=== PATIENT | male | born 1955 | race Caucasian/White ===

== ENCOUNTER 2017-01-21 09:16 | Observation (INO) ==
[2017-01-21] MEDS ORDERED: NS 1,000 ML IV PRN (09:25)
[2017-01-21] MEDS ORDERED: NS 1,000 ML IV ONE ×2 (09:57→12:19)
--- NOTE | 2017-01-21 09:57 | ED EKG INTERP ---
This chart was entered by Yamel Trinidad Scribe, acting as scribe for Pollo Maciel MD. EKG Interpretation - EKG Time of EKG reading by physician:: 09:34 EKG Read and Signed by:: Pollo Maciel EKG Interpretation (*Must complete 3 of following elements*): Abnormal Rate: 95 Rhythm: normal sinus rhythm Comments: nonspecific T wave abnormality Attestation - Physician/ TRUDY Attestation The physician spent face to face time with patient:: Yes Advanced Practice Provider documentation review:: Supervising physician onsite and consulted in the evaluation and care of this patient. The physician did have a face to face encounter with the patient. This chart was documented by the indicated scribe, (Yamel Trinidad Scribe) and accurately reflects the services I performed and decisions made by me, Pollo Maciel MD, as attested by the provider's signature.
[2017-01-21] MEDS ORDERED: NS 1,000 ML ONE (09:58)
[2017-01-21 10:10] LABS: MANUAL DIFF NEEDED? NO
[2017-01-21 10:12] LABS: OCCULT BLOOD 1 POSITIVE (NEGATIVE)
[2017-01-21 10:15] LABS: BASO% 0.4 % (0.0-0.8); EOS# 0.27 X1000 (0.0-0.7); EOS% 2.4 % (0.0-10.0); HEMATOCRIT 38.2 % (42.0-52.0); HEMOGLOBIN 13.4 g/dL (14.0-18.0); IMM GRAN# 0.03 X1000 (0.0-0.04); IMM GRAN% 0.3 % (0.0-0.5); LYMPH# 3.74 X1000 (1.2-3.4); LYMPH% 33.4 % (20.5-51.1); MCH 31.7 PG (27-31); MCHC 35.1 g/dL (33-37); MCV 90.3 FL (81-99); MONO# 0.85 X1000 (0.11-0.59); MONO% 7.6 % (1.7-9.3); MPV 10.6 FL (7.4-10.4); NEUT% 55.9 % (42.2-75.2); PLT 221 X1000 (130-400); RBC 4.23 XMIL (4.7-6.1)
[2017-01-21 10:29] LABS: AGAP 8; ALBUMIN 3.9 g/dL (3.5-5.0); ALKALINE PHOSPHATASE 42 U/L (32-122); BUN 30 mg/dL (8-22); CALCIUM 8.6 mg/dL (8.8-10.2); CHLORIDE 97 mmol/L (98-107); COSMO 276; GOT 18 U/L (10-34); GPT 21 U/L (10-44); POTASSIUM 3.4 mmol/L (3.5-5.1); SODIUM 135 mmol/L (136-145); TCO2 30 mmol/L (25-35); TOTAL PROTEIN 6.5 g/dL (6.3-8.3)
[2017-01-21 10:39] LABS: PTT PL 27.8 Seconds (22.6-43.9)
--- NOTE | 2017-01-21 11:45 | Diag Imaging Result Doc PS360 ---
EXAM: CT ABD/PELVIS W/ IV CONT ONLY HISTORY: black, tarry stools; LLQ pain, epigastric pain TECHNIQUE: Routine with IV contrast as per standard protocol. Dose reduction technique.. Oral contrast was not administered as per ED physician request. COMPARISON: None. FINDINGS: The lung bases show no abnormalities. The gastric folds appear prominent which may be secondary to nondistention or diffuse fold thickening. There is moderate constipation. There is diverticulosis. No evidence for diverticulitis. The appendix appears normal. Prostate gland is prominent measuring 4.4 cm transverse diameter. There is left nephrolithiasis. No hydronephrosis is appreciated. There is no free fluid or free air. The liver, spleen, and kidneys are unremarkable. No small bowel distention. Pancreas appears somewhat hypodense however there is no peripancreatic inflammation. No adenopathy is identified. IMPRESSION: 1.Prominent gastric folds which may be secondary to nondistention. Inflammatory change cannot be excluded. 2.Diverticulosis. No evidence for diverticulitis. 3.Constipation. 4.Hypodense pancreas which may be seen with pancreatitis, however, there is no peripancreatic inflammatory change. 5.Left nephrolithiasis. No hydronephrosis. Electronically signed by Delores White 01/21/2017 11:43 AM
[2017-01-21] MEDS ORDERED: ZOFRAN IV PRN (12:19)
[2017-01-21] MEDS ORDERED: TYLENOL PO PRN (12:19)
--- NOTE | 2017-01-21 12:23 | PROVIDER DOCUMENTATION ---
This chart was entered by Yamel Trinidad Scribe, acting as scribe for Iza Martinez PA. HPI-Abdominal Pain/GI Problem - General Chief Complaint: GI Bleed Stated Complaint: SOB,RAPID PULSE,FAINT,SWEATY Time Seen by Provider: 01/21/17 09:31 Source: patient Allergies/Adverse Reactions: Patient Allergies Allergy/AdvReac Type Severity Reaction Status Date / Time No Known Allergies Allergy Verified 01/21/17 09:24 - History of Present Illness-ABD Nature of Presenting Problems: Pt is 61 y/o M presents to the ED with abdominal pain. Pt states 2 bowel movement of black tarry stool. Pt state nausea and loss of appetite for 4 days. Pt states was diagnosed with stomach ulcer 5 yrs ago with EGD. Pt states he thought it was his ulcer, so Pt has been drinking milk for ulcer. Pt states colonoscopy 2 yrs ago with diagnosis of diverticulosis. Pt denies vomiting yesterday but did vomit a few days ago. Abdominal Pain Onset Location: reports: generalized abdomen Pain Radiation: reports: no radiation Quality of Pain: reports: aching Severity in ED: reports: mild Onset/Duration: reports: 24 hours ago (first black, tarry stool was yesterday but adominal pain and nausea started 4 days ago) Timing: reports: still present Activities at Onset: reports: light activity Exposure to sick contacts?: No Modifying Factors: improves with: nothing Associated Symptoms: reports: diaphoresis, heartburn, loss of appetite, nausea, weakness. denies: anxiety, arm pain, back/neck pain, chest pain, constipation, cough, diarrhea, dizziness, EENT symptoms, fatigue, fever/chills, genitourinary problems, headaches, joint pain, malaise, muscle aches, sinus congestion/ drainage, rash, seizure, shortness of breath, sensory/motor loss, pain with inspiration, swelling/mass in abdomen, syncope, vomiting, trouble walking Last BM: 24 hours ago Dark Stools Present?: reports: black, tarry Rectal Bleeding: reports: none Rectal Pain: reports: none Emesis Description: reports: none Bruising or Bleeding Gums?: No Similar Symptoms Previously?: Yes (present since yesterday. ) Recently seen or treated by another doctor?: No Review of Systems - Adult - REVIEW OF SYSTEMS - ADULT Constitutional: denies: chills, fever Eyes: denies: blurred vision, double vision, redness Ears, Nose, Mouth & Throat: denies: ear pain, nose pain, throat pain Cardiovascular: denies: chest pain, heart murmur, irregular heart rate Respiratory: denies: cough, shortness of breath, wheezing Gastrointestinal: reports: abdominal pain, nausea, poor appetite, other (black tarry stool). denies: diarrhea, rectal bleeding, vomiting Genitourinary: denies: dysuria, flank pain, hematuria Musculoskeletal: denies: bone pain, joint pain, neck pain Integumentary: denies: hives, itching, rash Neurological: denies: dizziness/vertigo, headache/migraines, numbness, seizure, syncope Psychiatric: denies: anxiety, depression, suicidal thoughts Endocrine: reports: no symptoms reported Hematologic/Lymphatic: reports: no symptoms reported Allergic/Immunologic: reports: no symptoms reported All Other Systems: Reviewed and Negative Past History - Adult - PAST MEDICAL HISTORY-ADULT Review of Records: reports: Nursing Assessment Review, Medications Reviewed, Social history reviewed & non-contributory. Major Childhood Illnesses: reports: denies history Cardiovascular: reports: HTN Respiratory: reports: denies history Gastrointestinal: reports: denies history Obstetrical/Gynecological: reports: denies history Genitourinary: reports: denies history Musculoskeletal: reports: denies history Neurological: reports: denies history Endocrine/Immune: reports: denies history Other Conditions: reports: denies history - PRIOR SURGERIES/PROCEDURES Surgical/Procedure History: reports: reviewed, not pertinent - IMMUNIZATION STATUS Childhood Immunizations: See Nurse Assessment Flu Vaccine: See Nurse Assessment - FAMILY HISTORY Family History: reviewed, not pertinent - SOCIAL HISTORY Smoking: chew, less than 1 pack/day Provider spent 3-5 mins advising pt. on dangers of tobacco.: discussed smoking cessation Substance Use: denies Living Situation: family Physical Exam-General - PHYSICAL EXAM-ADULT Initial Vital Signs Reviewed: Yes - CONSTITUTIONAL General Appearance: appears well, alert, no apparent distress - EYES Eyes: PERRL/EOMI, pink conjunctivae - HEAD, EARS, NOSE, MOUTH & THROAT HENMT: normocephalic/atraumatic, moist mucous membranes - NECK Neck: non-tender, full range of motion, supple - RESPIRATORY Respiratory: chest non-tender, lungs clear, normal breath sounds - CARDIOVASCULAR Cardiovascular: normal peripheral pulses, regular rate, rhythm, no edema - GASTROINTESTINAL (ABDOMEN) Abdominal Exam: normal bowel sounds, soft, tenderness (LLQ and epigastric area with mild pain) - GENITOURINARY Rectal Exam: normal rectal tone, black stool. negative: hemorrhoids, prostate enlarged/nodule, tenderness Hemoccult Exam: heme positive stool - MUSCULOSKELETAL Back Exam: normal inspection, no CVA tenderness, no vertebral tenderness Extremity: normal gait, normal inspection Peripheral Pulses: dorsalis-pedis (R): 2+, dorsalis-pedis (L): 2+ - SKIN Integumentary: normal color, normal turgor, warm/dry. negative: diaphoresis - NEUROLOGIC Neurologic: grossly normal, no motor/sensory deficits - PSYCHIATRIC Psych/Mental Status: normal mood/affect, normal thought content, normal thought process, oriented x 3 Progress - PLAN OF CARE/RESULTS Progress/Plan/Lab Results: Vital Signs - 8 hr 01/21/17 09:19 01/21/17 09:33 01/21/17 09:44 Temperature 97.3 F L Pulse Rate 90 103 H Pulse Rate [Sitting] 104 H Pulse Rate [Standing] 102 H Pulse Rate [Supine] 86 Respiratory Rate 20 18 Blood Pressure 109/71 Blood Pressure [Sitting] 110/71 Blood Pressure [Standing] 109/71 Blood Pressure [Supine] 118/79 O2 Sat by Pulse Oximetry 100 98 Orders Category Date Time Status Saline Loc DIRECTED Care 01/21/17 09:25 Active CBC WITH ELECTRONIC DIFF [HEME] Stat Lab 01/21/17 09:25 Ordered COMPREHENSIVE METABOLIC PANEL [CHEM] Stat Lab 01/21/17 09:25 Ordered OCCULT BLOOD SCREEN STOOL PL Stat Lab 01/21/17 09:56 Ordered PROTIME WITH INR PL [COAG] Stat Lab 01/21/17 09:[address] [COAG] Stat Lab 01/21/17 09:25 Ordered TYPE & SCREEN [BBK] Stat Lab 01/21/17 09:25 Ordered 0.9% Sodium Chloride Inj [Ns] 1,000 ml Med 01/21/17 09:58 Discontinued .ROUTE As Directed 0.9% Sodium Chloride Inj [Ns] 1,000 ml Med 01/21/17 09:57 Active IV 999 mls/hr Result Diagrams: 01/21/17 09:51 01/21/17 09:57 - CONSULTS/PCP/HOSPITALIST Notification #1 *Consult/PCP/Hospitalist*: Saumya Time Discussed: 12:10 Consult Disposition: Admit Departure - Departure Date of Disposition Decision: 01/21/17 Time of Disposition Decision: 12:19 DIAGNOSIS: GI bleed due to NSAIDs Disposition: ADMITTED INPATIENT 09 Certified Medical Emergency: Emergent Condition: Stable Referrals and Follow-Ups: Tru Kerns MD [Primary Care Provider] - - Critical Care Note This patient required my direct & personal management of CC.: No Attestation - Physician/ TRUDY Attestation Patient care was provided by Advanced Practice Provider:: Yes Advanced Practice Provider:: Iza Martinez Advanced Practice Provider documentation review:: The Mid-level provider documentation, treatment plan and medical decision making was reviewed by the physician who agrees with all treatment and medical decision making by the MLP. The physician spent face to face time with patient:: Yes Advanced Practice Provider documentation review:: Supervising physician onsite and consulted in the evaluation and care of this patient. The physician did have a face to face encounter with the patient. This chart was documented by the indicated scribe, (Yamel Trinidad Scribe) and accurately reflects the services I performed and decisions made by me, Iza Martinez PA, as attested by the provider's signature.
[2017-01-21] MEDS ORDERED: SODIUM CHLORIDE 0.9% INJ SCH (17:00)
[2017-01-21] MEDS ORDERED: MAALOX PLUS LIQUID PO PRN (17:01)
--- NOTE | 2017-01-21 17:07 | HISTORY AND PHYSICAL ---
CHIEF COMPLAINT: Abdominal burning, black tarry stools. HISTORY OF PRESENT ILLNESS: This is a 61-year-old, male with a prior history of gastric ulcers, H. pylori positive who presented to the emergency room complaining of black tarry stools as well as epigastric burning and an increase in his reflux. He states that he started having epigastric and upper abdominal pain Tuesday. This was consistent with prior gastric ulcers. He states he developed diarrhea. Having black tarry stools. He denied any maroon or red stools or any vomitus or coffee-grounds emesis or blood. He does state that he takes 5-6 BC powders a day for headache. He did complain of some dizziness on walking, although he is not orthostatic by blood pressure. He did have a 20 point rise in heart rate from lying to standing. CT of the abdomen and pelvis revealed prominent gastric folds which could be secondary to non distention, diverticulosis, hypodense pancreas, which may be seen with pancreatitis with no peripancreatic inflammatory change. He was given a liter of saline. Zofran for nausea. Admitted for further evaluation and treatment. PAST MEDICAL HISTORY: Hypertension, gout, H. pylori positive. Gastric ulcers. Esophageal stricture. PAST SURGICAL HISTORY: Esophageal dilatation. SOCIAL HISTORY: He uses smokeless tobacco. He denies alcohol or illicit drug use. ALLERGIES: No known drug allergies. HOME MEDICATIONS: Allopurinol 100 mg daily. Lorazepam 0.5 t.i.d. Lisinopril/ hydrochlorothiazide 12.5/20 mg b.i.d., Ultram 100 t.i.d., Nexium 40 mg daily. REVIEW OF SYSTEMS: A 14 point review of systems is discussed with patient with pertinent positives stated in HPI. He denies syncope, palpitations, chest pain, any shortness of breath, cough, PND, orthopnea, fever, chills, black or bloody vomitus, any bloody stools , hematuria, dysuria, frequency, urgency. PHYSICAL EXAMINATION: GENERAL: This is a 61-year-old male who is sitting up in the bed, in no distress. VITAL SIGNS: Blood pressure is 125/77 with a heart rate of 74, respirations are 16, temperature is 97.6 oral with a room air saturation of 100%. HEENT: Head is normocephalic, atraumatic. Pupils equal, round, react to light. EOMs are intact. Sclerae anicteric. Mucous membranes are moist. NECK: Supple. Trachea midline. CARDIOVASCULAR: Regular rate and rhythm. S1 and S2 are appreciated. PULMONARY: Breath sounds are clear with no increased work of breathing noted. Chest does rise and fall symmetrically with respiration. GASTROINTESTINAL: Abdomen is soft with some left lower quadrant and epigastric tenderness. Bowel sounds present in all 4 quadrants. MUSCULOSKELETAL: Good range of motion of joints. EXTREMITIES: No clubbing, cyanosis, or edema. Calves are nontender. Pulses are palpable x4. NEUROLOGIC: He is alert and oriented x3. Cranial nerves 2-12 grossly intact. SKIN: Warm and dry with no rashes or lesions noted. DIAGNOSTICS: WBC is 11.1 with hemoglobin 13.4, hematocrit 38.2 and platelets of 221. Sodium is 135, potassium 3.4, BUN 30, creatinine 1 with a glucose of 95. Stool occult blood is positive. CT scan of the abdomen and pelvis reveals prominent gastric folds which may be secondary to nondistention. Moderate constipation, diverticulosis. Prominent prostate at 4.4 cm transverse. Left nephrolithiasis. No hydronephrosis. No free air. Pancreas appears somewhat hypodense, however, there is no peripancreatic inflammation. ASSESSMENT AND PLAN: 1. Gastrointestinal bleed. This is most likely due to nonsteroidal anti- inflammatory drug use, as he does take 5-6 BC powders daily and he has for quite some time. Will hold, of course, any NSAIDs. Will give Protonix. We will start Carafate. recheck his hemoglobin and hematocrit at 6 p.m. and repeat labs in the morning. 2. Leukocytosis. 3. Hypokalemia. Will trend electrolytes, or replete as appropriate. 4. Tobacco use and abuse. We did discuss with the patient the perils of smoking. Giving ways to assist with cessation as well as materials for smoking cessation. We will have a nicotine patch if needed. 5. For deep vein thrombosis prophylaxis will use sequential compression devices. 6. For gastrointestinal prophylaxis, of course, we will add Protonix. Further treatments pending hospital course. Dictated by REBECCA Phillips for Tru Kerns MD cc: REBECCA Phillips MD [facility]
[2017-01-21] MEDS: CARAFATE PO SCH ×2 (17:29→20:27)
[2017-01-21] MEDS: PROTONIX IV SCH (17:30)
[2017-01-21 17:57] LABS: HEMATOCRIT 32.8 % (42.0-52.0); HEMOGLOBIN 11.5 g/dL (14.0-18.0); MCHC 35.1 g/dL (33-37); MCV 91.4 FL (81-99); MPV 10.6 FL (7.4-10.4); RBC 3.59 XMIL (4.7-6.1)
[2017-01-21] MEDS: PRINIVIL PO SCH (20:27)
[2017-01-21] MEDS: HYDROCHLOROTHIAZIDE PO SCH (20:27)
[2017-01-22] MEDS: PROTONIX IV SCH (05:28)
[2017-01-22 06:25] LABS: AGAP 6; BUN 15 mg/dL (8-22); CALCIUM 8.4 mg/dL (8.8-10.2); CHLORIDE 101 mmol/L (98-107); COSMO 274; POTASSIUM 3.7 mmol/L (3.5-5.1); SODIUM 136 mmol/L (136-145); TCO2 29 mmol/L (25-35)
[2017-01-22 06:30] LABS: HEMOGLOBIN 11.3 g/dL (14.0-18.0); MCH 31.5 PG (27-31); MCHC 34.2 g/dL (33-37); MCV 91.9 FL (81-99); MPV 10.6 FL (7.4-10.4); RBC 3.59 XMIL (4.7-6.1)
[2017-01-22] MEDS: CARAFATE PO SCH ×2 (07:59→10:46)
[2017-01-22] MEDS ORDERED: ATIVAN PO PRN (08:22)
[2017-01-22] MEDS ORDERED: ULTRAM PO SCH (09:00)
[2017-01-22] MEDS ORDERED: ZYLOPRIM PO SCH (09:00)
[2017-01-22] MEDS: PRINIVIL PO SCH (09:18)
[2017-01-22] MEDS: HYDROCHLOROTHIAZIDE PO SCH (09:18)
[2017-01-22 12:01] VITALS: BP 115/66
--- NOTE | 2017-01-22 12:32 | DISCHARGE SUMMARY ---
ADMISSION DATE: 01/21/2017 DISCHARGE DATE: 01/22/2017 DATE OF ADMISSION: 01/21. DATE OF DISCHARGE: 01/22. DISCHARGE DIAGNOSES: 1. Upper bleed secondary to NSAID use, stable. 2. Anemia, stable with 11 and 33. 3. Hypokalemia, resolved. 4. Heme-positive stools secondary to his upper gastrointestinal bleed. The patient has had no further diarrhea and no further stool while in the hospital. CONSULTATIONS: None. PROCEDURES: None. BRIEF HOSPITAL COURSE: The patient is a 61-year-old male, who was admitted to the hospital, watched overnight, and given Nexium, Carafate, IV fluids, kept n.p.o. and he continues to improve. He advanced his diet. Tolerated it very well. DISCHARGE INSTRUCTIONS: Discussed with that patient that he needs to stop all anti-inflammatory usage at the current time. He will need to have an outpatient EGD. But currently, he is stable and does not need to stay in the hospital 2 more days for this to occur. The patient will eat small, frequent meals. DISCHARGE MEDICATIONS: He will take Nexium and Carafate at home. Further orders as needed. TIME SPENT: 35 minutes was spent in total care. cc: Tru Kerns MD
[2017-01-23] MEDS ORDERED: NEXIUM PO SCH (07:00)
--- NOTE | 2017-01-24 09:15 | EKG Report ---
Test Performed on : 01/21/2017 09:34:53 AM Test Reason : routine Blood Pressure : / mmHG Vent. Rate : 095 BPM Atrial Rate : 095 BPM P-R Int : 140 ms QRS Dur : 084 ms QT Int : 302 ms P-R-T Axes : 015 016 073 degrees QTc Int : 379 ms Normal sinus rhythm. Nonspecific T wave abnormality Abnormal ECG No previous ECGs available Unconfirmed Result
== END 2017-01-22 14:00 | disposition home or self-care (01) ==
LOC: P.ED 09:16 → P.MEDSURG 09:16 → OBSVTOIN 09:17 → INTOOBSV 09:17
PROVIDERS: ATTEND Family Medicine